=== PATIENT | male | born 1990 | race Caucasian/White ===

== ENCOUNTER 2023-10-11 06:36 | Day surgery (SDC) | payer OTHER, SELFPAY ==
[2023-09-27 11:58] VITALS: BMI 27.5
[2023-10-11 07:15] VITALS: BP 133/79; PULSE 64; RESP 20; TEMP 36.8; O2SAT 100
--- NOTE | 2023-10-11 07:42 | P.PNAN_ITS ---
Anes - Initial Pre Proc Eval Procedure: Operation Date: 10/11/23 08:30 Proposed Procedures p Esophagogastroduodenoscopy - José Luis Reeder MD Date/Time: 10/11/23 07:42 Surgeon: José Luis Reeder MD Pre Op Diagnosis: Bloating, early satiety Patient Data Age: 33 Gender: M Height: 1.83 m Weight: 93 kg Allergies Allergy/AdvReac Type Severity Reaction Status Date / Time No Known Allergies Allergy Verified 09/29/23 08:39 Home Medications Medication Instructions Recorded Confirmed Type multivitamin 1 tablet PO DAILY 09/29/23 10/11/23 History Patient hx anesthesia problems: none Family hx anesthesia problems: none Results Review: All pre-operative results and documents have been reviewed as part of the pre- operative evaluation. [facility] Social History Social History (Updated 10/11/23 @ 07:58 by Mauro Taylor DO) Smoking status: Never smoker Substance use: current Substance use type: marijuana Other substance usage details: daily Anes - Eval Final PreProcedure Day of Procedure 10/11/23 07:42 Patient weight: overweight Heart: regular rate and rhythm Lungs: clear to auscultation Airway: Mallampati scale class II Neurological: alert and oriented Last oral intake: >/= 8 hours ASA classification: II Emergent: no Anesthetic plan: proceed Anesthesia type and monitoring: general GIVS and standard monitoring Results Review: All pre-operative results and documents have been reviewed as part of the pre- operative evaluation. Informed Consent: The patient's anesthetic plan and its attendant risks and benefits were discu ssed with the patient/family/POA. Questions were solicited and answers provided to the satisfaction of the patient/family/POA.
--- NOTE | 2023-10-11 07:51 | PM.HPGS ---
History of Present Illness History of Present Illness Consent: Risks, benefits, and alternatives have been discussed and questions answered. Patient agrees to proceed with procedure. Chief complaint: Bloating, early satiety Narrative: Eliecer Hernandez is a 33 year old male presents on referral from Dr. Workman. He is getting full easily. He denies any abdominal pain but feels somewhat bloated. Complains of upper abdominal like sensation. He denies over pain. Has any weight loss. He is referred for EGD the patient is may be given after endoscopy. Review of Systems Review of Systems: Review of systems noncontributory. [facility] Social History Social History Smoking status: Never smoker Substance use type: does not use Meds Home Medications and Allergies Home Medications Medication Instructions Recorded Confirmed Type multivitamin 1 tablet PO DAILY 09/29/23 10/11/23 History Allergies Allergy/AdvReac Type Severity Reaction Status Date / Time No Known Allergies Allergy Verified 09/29/23 08:39 Exam Narrative: Physical exam reveals patient to be alert. Vital signs stable. HEENT exam is unremarkable. Patient is anicteric. Lungs are clear to auscultation and to percussion. Heart is without murmur or extra sounds. Abdomen bowel sounds are present soft nontender with no organomegaly. Digital external rectal exam is normal. Assessment and Plan Assessment and plan (1) Early satiety: Code(s): R68.81 - Early satiety Status: Acute Assessment and Plan: Patient complains of getting full early. He feels some bloating in the upper abdomen. EGD is requested will be performed. Further recommendations may be given after endoscopy.
[2023-10-11] MEDS: LACTATED RINGERS 1,000 ML 150 ML IV CONT (08:30)
[2023-10-11 08:40] VITALS: BP 115/69; PULSE 64; RESP 20; O2SAT 98
[2023-10-11 08:50] VITALS: BP 120/69; PULSE 66; RESP 20; O2SAT 98
[2023-10-11 09:00] VITALS: BP 115/65; PULSE 62; RESP 20; O2SAT 98
--- NOTE | 2023-10-11 13:19 | WPDANESPN ---
Anes - Prog Note Post-Op Date/Time: 10/11/23 13:19 Cardiovascular status: normal Respiratory status: normal Airway patency: baseline Mental status: baseline Post-Op hydration status: normal Vital Signs: Last Vital Signs Temp 36.8 C 10/11/23 07:15 Pulse 62 10/11/23 09:00 Resp 20 10/11/23 09:00 BP 115/65 10/11/23 09:00 Pulse Ox 98 10/11/23 09:00 O2 Del Method Room Air 10/11/23 09:00 Pain Score (VAS): 0 I/O: Intake & Output 10/10/23 10/11/23 10/11/23 23:59 07:59 15:59 Intake Total 800 Balance 800 Post-procedural complaints: none Patient Feedback: Patient satisfied with anesthetic care. Other Findings: Patient vital signs back to baseline. Patient denies nausea and vomiting. Patient's pain under control. Patient OK for discharge.
== END 2023-10-11 09:08 | disposition home or self-care (01) ==
PROVIDERS: PCP Emergency Medicine; Visit Provider Internal Medicine Gastroenterology
PROC: 0DJ08ZZ Inspection of Upper Intestinal Tract, Via Natural or Artificial Opening Endoscopic (ICD-10-PCS; CPT 43235; principal; 2023-10-11 08:30)
DX: R68.81 Early satiety (principal)
CPT/HCPCS: 43239

== ENCOUNTER 2023-10-11 07:00 | Outpatient (NON) | payer OTHER, SELFPAY | END 2023-10-11 07:01 | disposition home or self-care (01) | PROVIDERS: PCP Emergency Medicine; Visit Provider Internal Medicine Gastroenterology | DX: R68.81 Early satiety (principal) | CPT/HCPCS: 88305 ==